=== PATIENT | female | born 2000 | race Caucasian/White ===

== ENCOUNTER 2018-10-09 20:01 | Inpatient (IN) | payer OTHER ==
[2018-10-09 20:43] LABS: Basophils % (A) 0 %; Eosinophils # (A) 0.2 k/uL (0-0.7); Eosinophils % (A) 2 %; HCT 44.4 % (34.0-46.0); Lymphocytes % (A) 19 %; MCH 31.5 pg (25.0-35.0); MCHC 35.9 g/dL (31.0-37.0); MCV 87.6 fL (80.0-100.0); Mean Platelet Volume 7.1; Monocytes # (A) 0.6 k/uL (0-1.0); Monocytes % (A) 6 %; Neutrophils # (A) 7.6 k/uL (1.3-7.7); Neutrophils % (A) 72 %; Platelet Count 287 k/uL (150-450); RBC 5.07 m/uL (3.80-5.40); RDW 11.9 % (11.5-15.5); WBC 10.5 k/uL (4.0-11.0)
[2018-10-09 20:53] LABS: ALT 47 U/L (9-52); AST 28 U/L (14-36); Alkaline Phosphatase 81 U/L (38-126); Anion Gap 10 mmol/L; Blood Urea Nitrogen 14 mg/dL (7-17); Calcium 10.8 mg/dL (8.4-10.2); Carbon Dioxide 24 mmol/L (22-30); Chloride 108 mmol/L (98-107); Glucose 88 mg/dL (74-99); Magnesium 2.2 mg/dL (1.6-2.3); Potassium 4.1 mmol/L (3.5-5.1); Sodium 142 mmol/L (137-145); Total Bilirubin 0.4 mg/dL (0.2-1.3); Total Protein 8.5 g/dL (6.3-8.2)
[2018-10-09 21:01] LABS: D-Dimer 0.23 mg/L FEU (<0.60); Partial Thromboplastin Time 24.5 sec (22.0-30.0); Prothrombin Time 10.2 sec (9.0-12.0)
[2018-10-09] MEDS ORDERED: EPINEPHrine 1 MG/ML 1 ML AMP IM STA (21:01)
[2018-10-09] MEDS ORDERED: FAMOTIDINE 20 MG/2 ML VIAL IV STA (21:01)
[2018-10-09] MEDS ORDERED: SODIUM CHLORIDE 0.9% 500 ML 500 ML IV STA (21:01)
[2018-10-09] MEDS ORDERED: methylPREDNISolone SOD SUCCI 125 MG/2 ML VIAL IV STA (21:01)
[2018-10-09 21:02] LABS: Creatine Kinase 43 U/L (30-135)
[2018-10-09] MEDS ORDERED: RACEPINEPHRINE 2.25% NEB 0.5 ML NEBU INHALATION STA (21:02)
[2018-10-09] MEDS: EPINEPHrine 1 MG/ML 1 ML AMP IM STA ×2 (21:03→21:08)
[2018-10-09 21:04] LABS: Appearance,Urine Clear (Clear); Bilirubin,Urine Negative (Negative); Blood,Urine Negative (Negative); Color,Urine Light Yellow; Glucose,Urine (UA) Negative (Negative); Ketones,Urine Negative (Negative); Leukocyte Esterase,Urine Negative (Negative); Nitrite,Urine Negative (Negative); PH, Urine 7.5 (5.0-8.0); Protein,Urine Negative (Negative); Urobilinogen,Urine <2.0 mg/dL (<2.0)
[2018-10-09] MEDS ORDERED: DEXAMETHASONE SOD PHOSPHATE 10 MG/ML 1 ML VIAL IV STA (21:04)
[2018-10-09] MEDS: diphenhydrAMINE 50 MG CAP PO STA ×2 (21:10→21:13)
[2018-10-09] MEDS ORDERED: diphenhydrAMINE 50 MG/ML 1 ML VIAL IVP STA (21:12)
--- NOTE | 2018-10-09 21:13 | XR ---
EXAMINATION TYPE: XR chest 1V DATE OF EXAM: 10/09/2018 COMPARISON: NONE HISTORY: Shortness of breath TECHNIQUE: Single frontal view of the chest is obtained. FINDINGS: Lower lungs are partially obscured by copious overlying soft tissues There is no focal air space opacity, pleural effusion, or pneumothorax seen. The cardiac silhouette size is within normal limits. The osseous structures are intact. Osseous fragment along the right humeral head is compati ble with calcific tendinitis. IMPRESSION: No acute cardiopulmonary process.
--- NOTE | 2018-10-09 21:14 | XR ---
EXAMINATION TYPE: XR soft tissue neck DATE OF EXAM: 10/09/2018 COMPARISON: NONE HISTORY: Shortness of breath TECHNIQUE: Lateral view only was performed of the neck soft tissues. FINDINGS: Cervical spine maintains normal alignment. There is straightening of the usual cervical jung dosis. No prevertebral soft tissue swelling is seen. Epiglottis is unremarkable. Nasopharynx, glottic airway and infraglottic airway are patent. IMPRESSION: Unremarkable lateral views of the soft tissues of the neck other than straightening of th e usual cervical lordosis that may be related to muscular sprain, spasm or patient positioning.
[2018-10-09 21:15] LABS: Creatine Kinase MB 1.2 ng/mL (0.0-2.4); Troponin I <0.012 ng/mL (0.000-0.034)
[2018-10-09] MEDS ORDERED: LORazepam 2 MG/ML INJ IV STA (22:04)
--- NOTE | 2018-10-09 22:33 | ED ---
General Adult HPI - General Chief complaint: Shortness of Breath Stated complaint: SUNDAY Time Seen by Provider: 10/09/18 20:09 Source: patient Mode of arrival: ambulatory Limitations: no limitations - History of Present Illness Initial comments: 17yo female with PMH of depression and anxiety presenting today for cc of difficulty breathing. History limited due to SUNDAY, pt was verbal at triage refused during history. However pt states that she has been experiencing symptoms for past 2 days. She states that she thought she had strep throat, but then had difficulty breathing the past 2 days. Pt denies fever, chills, night sweats, chest pain. Denies other associated symptoms. Upon arrival pt VS within normal limits, there is stridor present on exam. No noted obstruction, FB, erythema of the throat/tonsills or tonsillar enlargement. Pt moved to the trauma bay given epinephrine. No signs of altered mentition. Pt VS remain stable. Pt given Ativan for anxiety, revaluation revealed. Pt will be admitted to [facility] for observation Dr Fox accepted admission. - Related Data Home Medications Medication Instructions Recorded Confirmed hydrOXYzine PAMOATE [Vistaril] 25 mg PO TID PRN 10/09/18 10/09/18 Allergies Allergy/AdvReac Type Severity Reaction Status Date / Time No Known Allergies Allergy Verified 10/09/18 21:34 Review of Systems ROS Statement: Those systems with pertinent positive or pertinent negative responses have been documented in the HPI. ROS Other: All systems not noted in ROS Statement are negative. Constitutional: Denies: fever, chills ENT: Reports: throat pain Respiratory: Reports: dyspnea, stridor. Denies: cough, wheezes, hemoptysis Cardiovascular: Denies: chest pain Gastrointestinal: Reports: vomiting (vomiting from SUNDAY per pt). Denies: abdominal pain, nausea, diarrhea, constipation Musculoskeletal: Denies: back pain Skin: Denies: rash Past Medical History Past Medical History: No Reported History Additional Past Medical History / Comment(s): anxiety and depression History of Any Multi-Drug Resistant Organisms: None Reported Past Surgical History: No Surgical Hx Reported Past Psychological History: Anxiety, Depression Smoking Status: Current every day smoker Past Alcohol Use History: None Reported Past Drug Use History: None Reported General Exam - General Exam Comments Initial Comments: General: The patient is awake and alert, pt appears distressed, stridor audible. No facial swelling. Pt will not speak. Eye: +3 pupils are equal, round and reactive to light, extra-ocular movements are intact. No nystagmus. There is normal conjunctiva bilaterally. No signs of icterus. Ears, nose, mouth and throat: There are moist mucous membranes and no oral lesions. No swelling below tongue or angle of the mandible. Oropharynx was not erythematous, there is no tonsillar enlargement or lesions. Neck: The neck is supple, there is no tenderness or JVD. No anterior cervical lymph node the. Cardiovascular: There is a regular rate and rhythm. No murmur, rub or gallop is appreciated. Respiratory: Lungs are clear to auscultation, respirations are abored, breath sounds are equal. No wheezes, rales, or rhonchi. Audible stridor. No retractions. Mild abdominal breathing. No cyanosis. No diaphoresis. Gastrointestinal: Soft, non-distended, non-tender abdomen without masses or organomegaly noted. There is no rebound or guarding present. No CVA tenderness. Bowel sounds are unremarkable. Musculoskeletal: Normal ROM, no tenderness. Strength 5/5. Sensation intact. Radial and DP pulses equal bilaterally 2+. Neurological: A&O x 3. CN II-XII intact, There are no obvious motor or sensory deficits. Coordination appears grossly intact. Skin: Skin is warm and dry and no rashes or lesions are noted. Psychiatric: Pt appears anxious Limitations: no limitations Course Vital Signs 10/09/18 10/09/18 10/09/18 20:04 20:22 20:27 Temperature 98.8 F Pulse Rate 89 Respiratory 24 39 H 28 H Rate Blood Pressure 126/68 O2 Sat by Pulse 98 100 Oximetry 10/09/18 10/09/18 10/09/18 20:30 20:59 21:00 Temperature Pulse Rate 53 L 77 73 Respiratory 24 25 H 22 Rate Blood Pressure 128/82 129/75 O2 Sat by Pulse 100 100 Oximetry 10/09/18 10/09/18 10/09/18 21:07 21:08 21:15 Temperature Pulse Rate 105 H 100 123 H Respiratory 20 32 H 32 H Rate Blood Pressure 142/76 O2 Sat by Pulse 100 Oximetry 10/09/18 10/09/18 10/09/18 21:25 21:30 22:00 Temperature Pulse Rate 109 H 105 H 112 H Respiratory 23 17 18 Rate Blood Pressure 142/76 149/76 O2 Sat by Pulse 100 100 Oximetry 10/09/18 10/09/18 22:30 23:00 Temperature Pulse Rate 90 63 Respiratory 20 20 Rate Blood Pressure 140/74 134/79 O2 Sat by Pulse 100 100 Oximetry EKG Findings - EKG Comments: EKG Findings:: A 12-lead EKG was performed and shows the following: Rate is 56, and rhythm is normal sinus. There are normal QRS complexes and normal R-wave progression. ST segments have no elevation or depression, and TX segments appear normal. Sinus bradycardia Medical Decision Making - Medical Decision Making Pt moved to trauma bay after initial evaluation for stridor, suspected upper respiratory compromise. No obvious obstruction from inspection of oropharynx. Pt refuses to talk, Pt types responses on phone. No signs of altered mentition. EKG no acute findings. VS stable 100% O2 saturation. No cyanosis or pallor. No skin changes. DDX upper airway obstruction from infectious/allergic etiology. Pt given Decadron 10 mg IV, Benadryl 50 mg IV push, 1 mg epinephrine, Pepcid 20 mg IV, racepineprhine inhalation, solumedtrol 125mg IV and given 500ml bolus. Lower lung sounds are clear, upper respiratory stridor. Stridor varies in intensity. Dr. Harden, ENT, consulted emergently who performed an upper scope performed revealing no cause of stridor. Lateral films (-) for epiglotitis, no noted abnormalities of neck spacing. There are no clinical signs concerning on inspection of the oropharynx strep pharnygitis or peritonsillar abscess. Laboratory studies unremarkable, strep negative. Dr. Hammond managed pt care during time in trauma bay. at this time it is unclear the cause of pt stridor. Upon reevaluation, pt had significant improvement in stridor and was resting comfortably on boyfriends arm. Pt was transferred for further observation and management to [address] [place] [address]. - Lab Data Result diagrams: 10/09/18 20:22 10/09/18 20:22 Lab Results 10/09/18 10/09/18 10/09/18 Range/Units 20:22 20:22 20:22 WBC 10.5 (4.0-11.0) k/uL RBC 5.07 (3.80-5.40) m/uL Hgb 16.0 (11.4-16.0) gm/dL Hct 44.4 (34.0-46.0) % MCV 87.6 (80.0-100.0) fL MCH 31.5 (25.0-35.0) pg MCHC 35.9 (31.0-37.0) g/dL RDW 11.9 (11.5-15.5) % Plt Count 287 (150-450) k/uL Neutrophils % 72 % Lymphocytes % 19 % Monocytes % 6 % Eosinophils % 2 % Basophils % 0 % Neutrophils # 7.6 (1.3-7.7) k/uL Lymphocytes # 2.0 (1.0-4.8) k/uL Monocytes # 0.6 (0-1.0) k/uL Eosinophils # 0.2 (0-0.7) k/uL Basophils # 0.0 (0-0.2) k/uL PT (9.0-12.0) sec INR (<1.2) APTT (22.0-30.0) sec D-Dimer (<0.60) mg/L FEU Sodium 142 (137-145) mmol/L Potassium 4.1 (3.5-5.1) mmol/L Chloride 108 H (98-107) mmol/L Carbon Dioxide 24 (22-30) mmol/L Anion Gap 10 mmol/L BUN 14 (7-17) mg/dL Creatinine 0.82 (0.52-1.04) mg/dL Est GFR (CKD-EPI)AfAm >90 (>60 ml/min/1.73 sqM) Est GFR (CKD-EPI)NonAf >90 (>60 ml/min/1.73 sqM) Glucose 88 (74-99) mg/dL Calcium 10.8 H (8.4-10.2) mg/dL Magnesium 2.2 (1.6-2.3) mg/dL Total Bilirubin 0.4 (0.2-1.3) mg/dL AST 28 (14-36) U/L ALT 47 (9-52) U/L Alkaline Phosphatase 81 (38-126) U/L Total Creatine Kinase 43 (30-135) U/L CK-MB (CK-2) 1.2 (0.0-2.4) ng/mL CK-MB (CK-2) Rel Index 2.8 Troponin I <0.012 (0.000-0.034) ng/mL Total Protein 8.5 H (6.3-8.2) g/dL Albumin 5.0 (3.5-5.0) g/dL Urine Color Urine Appearance (Clear) Urine pH (5.0-8.0) Ur Specific [place] (1.001-1.035) Urine Protein (Negative) Urine Glucose (UA) (Negative) Urine Ketones (Negative) Urine Blood (Negative) Urine Nitrite (Negative) Urine Bilirubin (Negative) Urine Urobilinogen (<2.0) mg/dL Ur Leukocyte Esterase (Negative) Urine HCG, Qual (Not Detectd) Group A Strep Rapid (Negative) 10/09/18 10/09/18 10/09/18 Range/Units 20:22 20:22 20:22 WBC (4.0-11.0) k/uL RBC (3.80-5.40) m/uL Hgb (11.4-16.0) gm/dL Hct (34.0-46.0) % MCV (80.0-100.0) fL MCH (25.0-35.0) pg MCHC (31.0-37.0) g/dL RDW (11.5-15.5) % Plt Count (150-450) k/uL Neutrophils % % Lymphocytes % % Monocytes % % Eosinophils % % Basophils % % Neutrophils # (1.3-7.7) k/uL Lymphocytes # (1.0-4.8) k/uL Monocytes # (0-1.0) k/uL Eosinophils # (0-0.7) k/uL Basophils # (0-0.2) k/uL PT 10.2 (9.0-12.0) sec INR 1.0 (<1.2) APTT 24.5 (22.0-30.0) sec D-Dimer 0.23 (<0.60) mg/L FEU Sodium (137-145) mmol/L Potassium (3.5-5.1) mmol/L Chloride (98-107) mmol/L Carbon Dioxide (22-30) mmol/L Anion Gap mmol/L BUN (7-17) mg/dL Creatinine (0.52-1.04) mg/dL Est GFR (CKD-EPI)AfAm (>60 ml/min/1.73 sqM) Est GFR (CKD-EPI)NonAf (>60 ml/min/1.73 sqM) Glucose (74-99) mg/dL Calcium (8.4-10.2) mg/dL Magnesium (1.6-2.3) mg/dL Total Bilirubin (0.2-1.3) mg/dL AST (14-36) U/L ALT (9-52) U/L Alkaline Phosphatase (38-126) U/L Total Creatine Kinase (30-135) U/L CK-MB (CK-2) (0.0-2.4) ng/mL CK-MB (CK-2) Rel Index Troponin I (0.000-0.034) ng/mL Total Protein (6.3-8.2) g/dL Albumin (3.5-5.0) g/dL Urine Color Light Yellow Urine Appearance Clear (Clear) Urine pH 7.5 (5.0-8.0) Ur Specific [place] 1.010 (1.001-1.035) Urine Protein Negative (Negative) Urine Glucose (UA) Negative (Negative) Urine Ketones Negative (Negative) Urine Blood Negative (Negative) Urine Nitrite Negative (Negative) Urine Bilirubin Negative (Negative) Urine Urobilinogen <2.0 (<2.0) mg/dL Ur Leukocyte Esterase Negative (Negative) Urine HCG, Qual Not Detected (Not Detectd) Group A Strep Rapid (Negative) 10/09/18 Range/Units 21:15 WBC (4.0-11.0) k/uL RBC (3.80-5.40) m/uL Hgb (11.4-16.0) gm/dL Hct (34.0-46.0) % MCV (80.0-100.0) fL MCH (25.0-35.0) pg MCHC (31.0-37.0) g/dL RDW (11.5-15.5) % Plt Count (150-450) k/uL Neutrophils % % Lymphocytes % % Monocytes % % Eosinophils % % Basophils % % Neutrophils # (1.3-7.7) k/uL Lymphocytes # (1.0-4.8) k/uL Monocytes # (0-1.0) k/uL Eosinophils # (0-0.7) k/uL Basophils # (0-0.2) k/uL PT (9.0-12.0) sec INR (<1.2) APTT (22.0-30.0) sec D-Dimer (<0.60) mg/L FEU Sodium (137-145) mmol/L Potassium (3.5-5.1) mmol/L Chloride (98-107) mmol/L Carbon Dioxide (22-30) mmol/L Anion Gap mmol/L BUN (7-17) mg/dL Creatinine (0.52-1.04) mg/dL Est GFR (CKD-EPI)AfAm (>60 ml/min/1.73 sqM) Est GFR (CKD-EPI)NonAf (>60 ml/min/1.73 sqM) Glucose (74-99) mg/dL Calcium (8.4-10.2) mg/dL Magnesium (1.6-2.3) mg/dL Total Bilirubin (0.2-1.3) mg/dL AST (14-36) U/L ALT (9-52) U/L Alkaline Phosphatase (38-126) U/L Total Creatine Kinase (30-135) U/L CK-MB (CK-2) (0.0-2.4) ng/mL CK-MB (CK-2) Rel Index Troponin I (0.000-0.034) ng/mL Total Protein (6.3-8.2) g/dL Albumin (3.5-5.0) g/dL Urine Color Urine Appearance (Clear) Urine pH (5.0-8.0) Ur Specific [place] (1.001-1.035) Urine Protein (Negative) Urine Glucose (UA) (Negative) Urine Ketones (Negative) Urine Blood (Negative) Urine Nitrite (Negative) Urine Bilirubin (Negative) Urine Urobilinogen (<2.0) mg/dL Ur Leukocyte Esterase (Negative) Urine HCG, Qual (Not Detectd) Group A Strep Rapid Negative (Negative) Disposition Clinical Impression: Difficulty breathing Disposition: ADMITTED IP TO THIS HOSP Is patient prescribed a controlled substance at d/c from ED?: No Decision to Admit Reason: Admit from EC Decision Date: 10/09/18 Decision Time: 22:33 - Out of Hospital Transfer - Req. Specs Out of Hospital Transfer - Requested Specifics: Medical ICU
--- NOTE | 2018-10-10 00:39 | CONS ---
CONSULTATION DATE OF SERVICE: 10/09/2018. REASON FOR CONSULTATION: Stridor. HISTORY: This is a 17-year-old white female who has a 2-day history of sore throat and today developed respiratory difficulty with noisy breathing. She came into the ER for this. She has had no fever or chills. She does have a history of recurrent strep throat, but states that her throat is just minimally sore at this point. She has also had difficulty with talking with the noisy breathing. She has had no nasal congestion or fever or chills or body aches. She has not had symptoms like this in the past. The ER physician has evaluated her and noted some inspiratory stridor and therefore called for an urgent consultation for flexible laryngoscopy. She has received epinephrine and steroids already as well as breathing treatment as per protocol for allergic etiology. PAST MEDICAL HISTORY: Positive for strep throat, but otherwise negative. PAST SURGICAL HISTORY: Negative. ALLERGIES: No known drug allergies. MEDICATIONS: Vistaril. SOCIAL HISTORY: Does smoke. Does not drink alcohol. REVIEW OF SYSTEMS: Noncontributory other than as above. PHYSICAL EXAM: A well developed young adult white female. She does have fluctuating degree and variable inspiratory stridor. Sometimes this is quiet and non-existent, sometimes it is louder. She is tolerating her own secretions. She will have occasional nonproductive cough. HEENT: Head is normocephalic, atraumatic. Ears bilaterally canals clear. Tympanic membranes unremarkable and mobile. Nose shows no congestion or drainage. The mouth, throat and oropharynx show tonsils +2 without erythema or exudate. They are light pink in color. The there was excellent airway at this level. The hypopharynx and larynx with flexible laryngoscopy show paradoxical vocal cord movement. She has vocal cord adduction on inspiration and abduction on expiration. She is, however, tolerating this. NECK: Supple without adenopathy. Note that the larynx and hypopharynx show no erythema, no swelling. Epiglottis and supraglottic structures are normal with no erythema. ASSESSMENT: Paradoxical vocal cord movement. PLAN: The patient will be admitted for observation with close airway observation in the intensive care unit overnight. This may have been triggered by a viral etiology or reflux and therefore would be treated supportively. I have discussed this with and she will be placed on reflux medications as well as steroids. Also should have a speech therapy evaluation tomorrow. Pulmonology consult also is in order. At times will need specific laryngology consultation otherwise, if this does not improve. If there are questions or concerns, please feel free to contact me. MILAN / LENCHO: [phone] /
--- NOTE | 2018-10-10 00:45 | PCN ---
PROCEDURE NOTE PREOPERATIVE DIAGNOSIS: Inspiration stridor. POSTOPERATIVE DIAGNOSIS: Inspiration stridor with paradoxical vocal cord movement. PROCEDURE: Flexible laryngoscopy. ANESTHESIA: None. COMPLICATIONS: None. ESTIMATED BLOOD LOSS: None. FINDINGS: See consult note. DESCRIPTION OF PROCEDURE: The patient was in the hospital bed. Flexible laryngoscopy was performed through the left nasal cavity, with systematic evaluation of the left nasal cavity, nasopharynx, oropharynx, hypopharynx and larynx with the above findings noted. She had paradoxical vocal cord movement. I could show the ER physician also this, as well as her overall airway, which to the vocal cord level is patent. The laryngoscope was withdrawn. The patient tolerated this well with no complications. MMODL / IJN: [id number] /
[2018-10-10] MEDS ORDERED: ALPRAZolam 0.5 MG TAB PO PRN (00:54)
--- NOTE | 2018-10-10 01:19 | P.HPIM ---
History of Present Illness H&P Date: 10/09/18 Chief Complaint: SUNDAY and stridor 17 year old female with history of anxiety and depression . patient presented due to SUNDAY which started this afternoon. patient is non verbal , and having inspiratory upper airways noises which is suspicious for stridor. she is communicating through typing on her phone, she seems very comfortable, no drooling no use of accessory muscles. she sounds like someone having hiccups. per ED notes, she was verbal in triage , then stopped talking. Patient boyfriend at bedside. she denies any fevers, or chills. she reports no coughing. but does admit to sore throat and runny nose. denies any chest pain, or wheezing. denies any sick contacts. denies nausea or vomiting. in the ED, ENT evaluated the patient with flexible laryngoscopy and paradoxical vocal cord movement noted otherwise patent airways. Review of Systems pertinent positives and negatives as per HPI, all other systems reviewed and negative Past Medical History Past Medical History: No Reported History Additional Past Medical History / Comment(s): anxiety and depression History of Any Multi-Drug Resistant Organisms: None Reported Past Surgical History: No Surgical Hx Reported Past Psychological History: Anxiety, Depression Smoking Status: Current every day smoker Past Alcohol Use History: None Reported Past Drug Use History: None Reported Medications and Allergies Home Medications Medication Instructions Recorded Confirmed Type hydrOXYzine PAMOATE [Vistaril] 25 mg PO TID PRN 10/09/18 10/09/18 History Allergies Allergy/AdvReac Type Severity Reaction Status Date / Time No Known Allergies Allergy Verified 10/09/18 21:34 Physical Exam Vitals: Vital Signs Temp Pulse Resp BP Pulse Ox 10/09/18 23:00 63 20 134/79 100 10/09/18 22:30 90 20 140/74 100 10/09/18 22:00 112 H 18 149/76 100 10/09/18 21:30 105 H 17 142/76 100 10/09/18 21:25 109 H 23 10/09/18 21:15 123 H 32 H 10/09/18 21:08 100 32 H 10/09/18 21:07 105 H 20 142/76 100 10/09/18 21:00 73 22 129/75 100 10/09/18 20:59 77 25 H 10/09/18 20:30 53 L 24 128/82 100 10/09/18 20:27 28 H 10/09/18 20:22 39 H 100 10/09/18 20:04 98.8 F 89 24 126/68 98 Intake and Output 10/09/18 10/09/18 10/10/18 14:59 22:59 06:59 Other: Weight 76.657 kg Constitutional: No acute distress, following commands, communicates through typing on her phone, pleasant Eyes: Anicteric sclerae, moist conjunctiva, no lid-lag Pupils equal round reactive to light ENMT: NC/AT Oropharynx clear, no erythema, or exudates Neck: Supple, FROM, no masses, or JVD No carotid bruits No thyromegaly Lungs: Good air entry bilaterally, no wheezes, rhonci or rales. transmitted upper airway noises hiccup like noises with inspiration Clear to percussion Normal respiratory effort, no accessory muscle use Cardiovascular: Heart regular in rate and rhythm, No murmurs, gallops, or rubs No peripheral edema Abdominal: Soft Nontender, no guarding, rebound or rigidity Abdomen moving with respiration Normoactive bowel sounds No hepatomegaly, No splenomegaly No palpable mass No abdominal wall hernia noted Skin: Normal temperature, tone, texture, turgor No induration No subcutaneous nodules No rash, lesions No ulcers Extremities: No digital cyanosis No clubbing Pedal pulses intact and symmetrical Radial pulses intact and symmetrical No calf tenderness Psychiatric: Alert and oriented to person, place and time Appropriate affect fair judgment Neuro Muscles Strength 5/5 in all 4 extremities Sensation to light touch grossly present throughout Cranial nerves II-XII grossly intact No focal sensory deficits Lymphatics: no palpable cervical or supraclavicular , or inguinal lymph nodes Results CBC & Chem 7: 10/09/18 20:22 10/09/18 20:22 Labs: Abnormal Lab Results - Last 24 Hours (Table) 10/09/18 Range/Units 20:22 Chloride 108 H (98-107) mmol/L Calcium 10.8 H (8.4-10.2) mg/dL Total Protein 8.5 H (6.3-8.2) g/dL Assessment and Plan Assessment: 17 year old female with history of depression and anxiety, admitted as observation , for monitoring and psych evaluation. she presented due to sudden onset SUNDAY, and stridors,. denies any drooling or swallowing difficulties . in the ED , he vocal cords and throat evaluated with flexible laryngoscopy and paradoxical vocal cord movement noted Plan: hiccup like sounds with breathing, suspicious for stridor close monitoring supplemental oxygen as needed history of anxiety and depression her behavior suspicious for secondary gain psych evaluation DVT PPx heparin sc tid code status , full code patient father is surrogate decision maker observation for <48 hours discharge to home when stable 55 minutes spent in the care of this patient
[2018-10-10] MEDS ORDERED: ALBUTEROL NEBULIZED 2.5 MG/3 ML INHALATION STA (07:08)
[2018-10-10] MEDS: HEPARIN SODIUM,PORCINE 5,000 UNIT/ML 1 ML VIAL SQ SCH ×2 (08:54→18:12)
[2018-10-10] MEDS ORDERED: ALBUTEROL NEBULIZED 2.5 MG/3 ML INHALATION PRN (13:29)
--- NOTE | 2018-10-10 14:15 | P.CN ---
Psychiatric Consult - . Consult date: 10/10/18 Consult:: Depression and anxiety? Somatization reaction? 10/10/18 12:59 Assessment and Plan Assessment: HPI: 17yo female with PMH of depression and anxiety presenting today for cc of difficulty breathing. History limited due to SUNDAY, pt was verbal at triage refused during history. However pt states that she has been experiencing symptoms for past 2 days. She states that she thought she had strep throat, but then had difficulty breathing the past 2 days. Pt denies fever, chills, night sweats, chest pain. Denies other associated symptoms. Upon arrival pt VS within normal limits, there is stridor present on exam. No noted obstruction, FB, erythema of the throat/tonsills or tonsillar enlargement. Pt moved to the trauma bay given epinephrine. No signs of altered mentition. Pt VS remain stable. Pt given Ativan for anxiety, revaluation revealed. Pt will be admitted to [facility] for observation Home Medications Medication Instructions Recorded Confirmed hydrOXYzine PAMOATE [Vistaril] 25 mg PO TID PRN 10/09/18 10/09/18 Allergies Allergy/AdvReac Type Severity Reaction Status Date / Time No Known Allergies Allergy Verified 10/09/18 21:34 Past Medical History Past Medical History: No Reported History Additional Past Medical History / Comment(s): anxiety and depression History of Any Multi-Drug Resistant Organisms: None Reported Past Surgical History: No Surgical Hx Reported Past Psychological History: Anxiety, Depression Smoking Status: Current every day smoker Past Alcohol Use History: None Reported Past Drug Use History: None Reported Mental Status Examination - this 17-year-old female was seen in the hospital bed and we communicated with using her smart phone texting answers to my questions. She stated no one else was sick at home. She lives with her brother. She was at [facility] in [place] and was treated for depression and anxiety. There is no major psychiatric event that happened prior to her difficulty breathing. She is not psychotic delusional suicidal or homicidal. General Appearance: [ casual, bizarre, appears stated age Speech/Language: [Unable to speak at the present time due to laryngeal spasms not of psychiatric or psychiatric origin Attitude/Behavior: [cooperative Mood: [ anxious, fearful, hopelessness] Affect: [full range, Orientation: [time, person, place situation] Thought Content: [wnl Risk Factors: [She is not suicidal (ideations, plan), and/or Homicidal ( ideations, plan), other] Perception: [wnl, she denies hallucinations (auditory, visual, tactile), other] Thought Processes: [goal-oriented Concentration/Attention Span: [wnl] [Per observation and interview with the patient] Recent Memory: [wnl 3 out of 3 in 3 minutes] Remote Memory: [wnl] [past events, as related history] Intelligence: [ average] [based on history, based on vocabulary, syntax, grammar , and content] Judgement: [fair,] [per patient's behavior/history of present illness] Insight: [fair] [understanding severity of illness/history of present illness] Psychiatric impressions: Per her on history she has a history of depression and anxiety and was inpatient hospitalized over a one year ago at [facility] Psychiatric recommendations: I know further recommendations since this is no psychiatric emergency and not caused by a somatization disorder Thank you for the consult Cleveland aBrfield D.O. PhD (1) Anxiety and depression Current Visit: Yes Status: Resolved Priority: Low Code(s): F41.9 - ANXIETY DISORDER, UNSPECIFIED; F32.9 - MAJOR DEPRESSIVE DISORDER, SINGLE EPISODE , UNSPECIFIED SNOMED Code(s): 30509885 Time with Patient: Less than 30
--- NOTE | 2018-10-10 14:24 | P.PN ---
Subjective Progress Note Date: 10/10/18 Principal diagnosis: Stridor Patient was seen and examined. No acute events overnight. Patient continues to report stridor along with shortness of breath. Over the last couple of days she has experienced runny nose and sore throat. Patient states that she thought that she had strep throat as it typically presents this way but got worried after she lost her voice and started experiencing stridor. She is unable to speak as well at this time. She is taxing via her phone. Her vitals and O2 saturation has remained stable since admission. She denies any excessive exercise. She has no history of asthma or exercise-induced asthma. She does have a history of depression and anxiety, states her last panic attack was 2 months ago. She takes hydroxyzine as needed for anxiety? Patient states her depression is well controlled at this time. She recently moved in with her brother and he "couldnt be happier". She denies any symptoms of heartburn or GERD. She does endorse ALLERGIC rhinitis during the summertime. She denies any chest pain or palpitations. Objective - Vital Signs Vital signs: Vital Signs Temp 97.9 F 10/10/18 08:00 Pulse 84 10/10/18 08:14 Resp 17 10/10/18 08:00 BP 127/59 10/10/18 08:00 Pulse Ox 99 10/10/18 08:00 Intake & Output 10/09/18 10/10/18 10/10/18 18:59 06:59 18:59 Weight 76.657 kg 76.657 kg Other: Voiding Method Toilet Toilet # Voids 1 1 - Exam General: [non toxic], [no distress], [appears at stated age] Derm: [warm], [dry] Head: [atraumatic], [normocephalic], [symmetric] Eyes: [EOMI], [no lid lag], [anicteric sclera] Mouth: [no lip lesion], [mucus membranes moist] Cardiovascular: [S1S2 reg], [no murmur], [positive posterior tibial pulse bilateral], Lungs: [CTA bilateral without per airway stridor with expiration], [no rhonchi, no rales] , [no accessory muscle use] Abdominal: [soft], [ nontender to palpation], [no guarding], [no appreciable organomegaly] Ext: [no gross muscle atrophy], [no edema], [no contractures] Neuro: [no focal neuro deficits] Psych: [Alert], [oriented], [appropriate affect] - Labs CBC & Chem 7: 10/09/18 20:22 10/09/18 20:22 Labs: Abnormal Lab Results - Last 24 Hours (Table) 10/09/18 Range/Units 20:22 Chloride 108 H (98-107) mmol/L Calcium 10.8 H (8.4-10.2) mg/dL Total Protein 8.5 H (6.3-8.2) g/dL Microbiology - Last 24 Hours (Table) 10/09/18 21:15 Group A Strep Throat Culture - Preliminary Throat Assessment and Plan Assessment: Assessment and Plan 1. Stridor: Viral laryngitis vs vocal cord dysfunction? Laryngoscopy performed in the ED, paradoxical vocal cord movement noted. Neck and chest x-ray is unremarkable. She is afebrile with no leukocytosis pointing away from infectious cause. Strep test negative. She does have a history of anxiety in which focal cord dysfunction presents frequently. ENT consulted - recommends reflux medication, steroids, speech therapy evaluation and pulmonology consult. We'll start albuterol neb 4 times a day as needed for shortness of breath or wheezing and alprazolam 0.5 mg by mouth 3 times a day when necessary for anxiety. We will continue Solu-Medrol 40 g IV 3 times a day and Protonix 40 mg IV daily. Telemetry monitoring. O2 per nasal cannula to maintain an oxygen saturation greater than 92%. FU ENT, Pulmonology, Speech therapy consult. 2. Anxiety and Depression: On hydroxyzine at home. Alprazolam 0.5 mg by mouth 3 times a day as needed for anxiety. FU Psychiatry consult. 3. DVT/GI Prophlaxis: Heparin 5000 units subcutaneously 3 times a day. Protonix 40 mg IV daily. Patient continues to experience stridor and respiratory distress, though her vitals and oxygen saturation remained stable. We'll consult psychiatry, pulmonology and speech therapy for further recommendations.
--- NOTE | 2018-10-10 15:33 | P.CNPUL ---
History of Present Illness Consult date: 10/10/18 Reason for consult: dyspnea, cough Chief complaint: Stridor, difficulty breathing History of present illness: Pulmonary/critical care consult dated 10/10/2018 17-year-old female with a history of depression and anxiety who presents to the emergency department with difficulty breathing. The patient was mostly nonverbal because she was having difficulty speaking and in fact, she was communicating by Eating on her phone. She apparently was having difficulty breathing for about 2 days prior to admission. The patient apparently thought that she might have a throat infection and that was causing the problem. She denies any fever chills night sweats chest pain or other complaints for that matter. Stridor noted by the ER physician in the ER, and a soft tissue of the neck was negative. Chest x-ray was also normal. There are no signs of mental status changes or any skin lesions. The patient was admitted for stridor. The patient still has stridor despite being treated with albuterol and steroids. We are going to switch her to Decadron 6 mg every [address] her on some IV antibiotic. In addition, a mixture of helium and oxygen may be necessary should her airway become more compromised. There is no history of ALLERGY, and the patient is a current every day smoker. Review of Systems Other than shortness of breath, which the patient mostly communicated by using her phone, no other complaints are admitted to. She does have stridor when auscultating the neck area Past Medical History Past Medical History: No Reported History Additional Past Medical History / Comment(s): anxiety and depression History of Any Multi-Drug Resistant Organisms: None Reported Past Surgical History: No Surgical Hx Reported Past Anesthesia/Blood Transfusion Reactions: No Reported Reaction Past Psychological History: Anxiety, Depression Smoking Status: Current every day smoker Past Alcohol Use History: None Reported Past Drug Use History: None Reported Medications and Allergies Home Medications Medication Instructions Recorded Confirmed Type hydrOXYzine PAMOATE [Vistaril] 25 mg PO TID PRN 10/09/18 10/09/18 History Allergies Allergy/AdvReac Type Severity Reaction Status Date / Time No Known Allergies Allergy Verified 10/09/18 21:34 Physical Exam Osteopathic Statement: *. No significant issues noted on an osteopathic structural exam other than those noted in the History and Physical/Consult. Vitals: Vital Signs Temp Pulse Pulse Resp BP BP Pulse Ox 10/10/18 12:00 98.4 F 110 H 20 137/78 99 10/10/18 08:14 84 10/10/18 08:00 97.9 F 68 72 14 127/59 99 10/10/18 04:00 98.8 F 115 H 17 129/67 98 10/10/18 00:00 97.9 F 58 L 16 110/56 99 10/09/18 23:00 63 20 134/79 100 10/09/18 22:30 90 20 140/74 100 10/09/18 22:00 112 H 18 149/76 100 10/09/18 21:30 105 H 17 142/76 100 10/09/18 21:25 109 H 23 10/09/18 21:15 123 H 32 H 10/09/18 21:08 100 32 H 10/09/18 21:07 105 H 20 142/76 100 10/09/18 21:00 73 22 129/75 100 10/09/18 20:59 77 25 H 10/09/18 20:30 53 L 24 128/82 100 10/09/18 20:27 28 H 10/09/18 20:22 39 H 100 10/09/18 20:04 98.8 F 89 24 126/68 98 Intake and Output 10/10/18 10/10/18 10/10/18 06:59 14:59 22:59 Other: Voiding Method Toilet Toilet # Voids 1 1 Weight 76.657 kg No acute distress, oriented 3. Mild audible stridor is noted. HEENT examination is grossly unremarkable. Mucous membranes are moist. No oral lesions. Neck supple. Full range of motion. No adenopathy thyromegaly or neck vein distention. Stridor is noted when auscultating the neck area. Cardiovascular examination reveals regular rhythm rate. S1-S2 normal. No S3 or S4. No discernible murmur noted. Lungs reveal clear breath sounds.Breath sounds are equal bilaterally. No adventitious lung sounds including wheezes rhonchi or crackles. Abdomen soft and bowel sounds are heard. No masses or tenderness. Extremities are intact. No cyanosis clubbing or edema. Skin is without rash or lesion. Neurologic examination is brief but nonfocal. Results - Laboratory Findings CBC and BMP: 10/09/18 20:22 10/09/18 20:22 PT/INR, D-dimer PT 10.2 sec (9.0-12.0) 10/09/18 20:22 INR 1.0 (<1.2) 10/09/18 20:22 D-Dimer 0.23 mg/L FEU (<0.60) 10/09/18 20:22 Abnormal lab findings: Abnormal Labs 10/09/18 20:22 Chloride 108 H Calcium 10.8 H Total Protein 8.5 H - Diagnostic Findings Chest x-ray: report reviewed, image reviewed (Chest x-ray, labs and medications are all reviewed.) Assessment and Plan Assessment: Assessment Stridor, of unclear etiology. This may related to true pathology such as supraglottic /epiglottitis, or an ALLERGIC reaction, or could be psychologic/ psychiatric in nature. Rule out intermittent laryngeal dyskinesia History of anxiety History of depression Plan: Plan dated 10/10/2018 The patient is on albuterol updrafts and also we added some Vaponefrine updrafts to be used 3 times a day. In addition, we went ahead and discontinued the soluMedrol and placed her on Decadron, 6 mg every 6 hours. We also placed her on some IV azithromycin just in case this represented an episode of supraglottitis/epiglottitis, which might be bacterial in nature. In addition, we talked about having helium oxygen mixture ready just in case she develops worsening obstruction and difficulty. She has been seen by psychiatry. She had a direct laryngoscopy by ear nose and throat, which has showed paradoxical movement of the vocal cords. This whole episode may in fact related to intermittent laryngeal dyskinesia and not true pathology and all. Additional recommendations and suggestions are forthcoming. We will watch patient carefully. Time with Patient: Greater than 30
[2018-10-10] MEDS ORDERED: methylPREDNISolone SOD SUCCI 40 MG/ML 1 ML VIAL IV SCH (16:00)
[2018-10-10] MEDS ORDERED: AZITHROMYCIN 500 MG in SODIUM CHLORIDE 0.9% 250 ML IVPB SCH (16:00)
[2018-10-10] MEDS: RACEPINEPHRINE 2.25% NEB 0.5 ML NEBU INHALATION SCH ×2 (16:00→20:07)
[2018-10-10] MEDS: DEXAMETHASONE SOD PHOSPHATE 10 MG/ML 1 ML VIAL IV SCH (18:06)
[2018-10-10] MEDS: SODIUM CHLORIDE 0.9% 1,000 ML IV SCH ×2 (18:07→22:51)
--- NOTE | 2018-10-10 18:36 | PN ---
PROGRESS NOTE I consulted with her nurse today regarding her ongoing stridor. She is still having some respiratory stridor, although it fluctuates. She has been seen by Pulmonary and Psychiatric Medicine already. She has had no desaturations. She is afebrile with a normal white blood cell count. She is on ongoing medications such as steroids. She carries the diagnosis of paradoxical vocal cord movement disorder, which was noted on flexible laryngoscopy last evening. Would still recommend a speech therapy consultation, which has not been done yet. She does not have any signs or symptoms of epiglottitis or supraglottitis. Her nurse is going to monitor her closely, and if she has any worsening symptoms she is going to call. Would await speech therapy consultation. MMODL / IJN: [id number] /
[2018-10-11] MEDS: DEXAMETHASONE SOD PHOSPHATE 10 MG/ML 1 ML VIAL IV SCH ×2 (00:15→06:39)
[2018-10-11] MEDS: HEPARIN SODIUM,PORCINE 5,000 UNIT/ML 1 ML VIAL SQ SCH ×2 (00:22→09:49)
[2018-10-11] MEDS: NICOTINE 7MG/24HR PATCH TRANSDERM SCH ×2 (01:02→09:48)
[2018-10-11] MEDS: SODIUM CHLORIDE 0.9% 1,000 ML IV SCH ×2 (01:02→06:39)
[2018-10-11 04:23] VITALS: BMI 26.4
[2018-10-11] MEDS: RACEPINEPHRINE 2.25% NEB 0.5 ML NEBU INHALATION SCH (08:23)
[2018-10-11] MEDS ORDERED: PANTOPRAZOLE 40 MG/10 ML VIAL IVP SCH (09:00)
[2018-10-11 10:37] VITALS: BP 128/59; PULSE 74; RESP 18; TEMP 98.2
--- NOTE | 2018-10-11 10:49 | P.DS ---
Providers Date of admission: 10/09/18 22:33 Expected date of discharge: 10/11/18 Attending physician: Radha Fox MD Consults: 10/09/18 23:20 Consult Physician Stat Consulting Provider: Vern Bales Consult Reason/Comments: difficulty breathing Do you want consulting provider notified?: Already Contacted 10/10/18 07:35 Consult Physician Stat Consulting Provider: Cleveland Barfield Consult Reason/Comments: Non verbal, possible moood disorder Do you want consulting provider notified?: Yes 10/10/18 13:28 Consult Physician Stat Consulting Provider: Seth Guzman Consult Reason/Comments: Stridor Do you want consulting provider notified?: Yes Primary care physician: Stated None - Discharge Diagnosis(es) (1) Stridor Current Visit: Yes Status: Acute (2) Anxiety and depression Current Visit: Yes Status: Acute Hospital Course: 17 year old female with history of anxiety and depression presented for difficulty breathing and stridor, which started this afternoon. Patient is non verbal, and having inspiratory upper airways noises which is suspicious for stridor. She is communicating through typing on her phone. She seems very comfortable. She denies drooling and is not using accessory muscles. Per ED notes, she was verbal in triage, but then stopped talking. She denies any fevers, or chills. She reports no coughing, but does admit to sore throat and runny nose. She denies any chest pain, or wheezing. She denies any sick contacts. She denies nausea or vomiting. In the ED, ENT evaluated the patient with flexible laryngoscopy and paradoxical vocal cord movement noted otherwise patent airways. With regard to her stridor, this is thought to be likely secondary to viral laryngitis or focal cord dysfunction. Neck and chest x-ray were unremarkable. Patient was afebrile with no leukocytosis during her admission pointing away from an infectious cause. Strep test was negative. ENT was consulted and recommended reflux medication, steroids, pulmonology and speech therapy evaluation. She was started on albuterol neb treatments as needed for wheezing and Xanax by mouth as needed for anxiety. Patient was initially started on Solu -Medrol and Protonix IV. She was given oxygen per nasal cannula to maintain oxygen saturation greater than 92%. Pulmonology was consulted and recommended switching Solu-Medrol to Decadron. She was also given racemic epinephrine as needed for stridor. Speech therapy was consulted and was able to get the patient speaking within 15 minutes of working with her. Speech therapy did notice pickups and stuttering, recommended outpatient follow-up. Patient's oxygen saturation and vitals remained stable throughout her admission and at the time of discharge. Patient seen and examined prior to discharge. No acute events overnight. Patient denies stridor or shortness of breath. Patient states she is able to speak now but complains of stuttering. She denies any chest pain or palpitations. Looking for to going home. General: [non toxic], [no distress], [appears at stated age] Derm: [warm], [dry] Head: [atraumatic], [normocephalic], [symmetric] Eyes: [EOMI], [no lid lag], [anicteric sclera] Mouth: [no lip lesion], [mucus membranes moist] Cardiovascular: [S1S2 reg], [no murmur], [positive DP pulse bilateral], Lungs: [CTA bilateral without stridor], [no rhonchi, no rales] , [no accessory muscle use] Abdominal: [soft], [ nontender to palpation], [no guarding], [no appreciable organomegaly] Ext: [no gross muscle atrophy], [no edema], [no contractures] Neuro: [no focal neuro deficits] Psych: [Alert], [oriented], [appropriate affect] Assessment and Plan 1. Stridor: Viral laryngitis vs vocal cord dysfunction? Laryngoscopy performed in the ED, paradoxical vocal cord movement noted. Neck and chest x-ray is unremarkable. She is afebrile with no leukocytosis pointing away from infectious cause. Strep test negative. She does have a history of anxiety in which focal cord dysfunction presents frequently. ENT consulted - recommends reflux medication, steroids, speech therapy evaluation and pulmonology consult. Continue Albuterol neb 4 times a day as needed for shortness of breath or wheezing and alprazolam 0.5 mg by mouth 3 times a day when necessary for anxiety. SoluMedrol DC'd as per Pulmonology and Decadron 6mg IV Q6H started along with racemic epinephrine and Azithromycin 250 mg IV QD. Continue Protonix 40 mg IV daily. Telemetry monitoring. O2 per nasal cannula to maintain an oxygen saturation greater than 92%. 2. Anxiety and Depression: On hydroxyzine at home. Alprazolam 0.5 mg by mouth 3 times a day as needed for anxiety. Psychiatry reports that this is not a somatic issue. 3. DVT/GI Prophlaxis: Heparin 5000 units subcutaneously 3 times a day. Protonix 40 mg IV daily. Patient stridor has completely resolved since working with speech therapy. Her vitals and O2 saturation remained stable. This is likely psychogenic or vocal cord dysfunction. Patient advised follow-up with PCP within 1-2 days and follow -up with speech therapy. Likely discharge today. Pertinent Studies: Chest and neck x-ray Patient Condition at Discharge: Stable Plan - Discharge Summary Discharge Rx Participant: No New Discharge Prescriptions: Continue hydrOXYzine PAMOATE [Vistaril] 25 mg PO TID PRN PRN Reason: Anxiety Discharge Medication List hydrOXYzine PAMOATE [Vistaril] 25 mg PO TID PRN 10/09/18 [History] Follow up Appointment(s)/Referral(s): None,Stated [Primary Care Provider] - 1-2 days Activity/Diet/Wound Care/Special Instructions: Diet: Regular Please follow-up with your primary care provider within 1-2 days of discharge. Please follow-up with speech therapy with the appointment given to you. Discharge Disposition: HOME SELF-CARE
[2018-10-12] MEDS ORDERED: PANTOPRAZOLE 40 MG TABLET PO SCH (09:00)
== END 2018-10-11 11:30 | disposition home or self-care (01) | DRG 153 ==
LOC: EC 20:01 → 2SICU 22:33 → 3SCARD 23:06
PROVIDERS: ADMIT Internal Medicine; ATTEND Internal Medicine
PROC: 0CJS8ZZ Inspection of Larynx, Via Natural or Artificial Opening Endoscopic (ICD-10-PCS; principal; 2018-10-09)
DX: J11.1 Influenza due to unidentified influenza virus with other respiratory manifestations (principal); G25.9 Extrapyramidal and movement disorder, unspecified; F17.200 Nicotine dependence, unspecified, uncomplicated; F32.9 Major depressive disorder, single episode, unspecified; F41.0 Panic disorder [episodic paroxysmal anxiety]; J30.9 Allergic rhinitis, unspecified; J38.3 Other diseases of vocal cords
CPT/HCPCS: 31575; 36415; 70360; 71045; 80053; 81003; 81025; 82550; 82553; 83735; 84484; 85025; 85379; 85610; 85730; 87081; 87430; 93005; 94640; 96361; 96372; 96374; 96375; 99285

== ENCOUNTER 2019-11-11 00:28 | Emergency (ER) | payer OTHER ==
--- NOTE | 2019-11-11 01:33 | CT ---
EXAMINATION TYPE: CT brain saray wo con DATE OF EXAM: 11/11/2019 COMPARISON: None HISTORY: fall, concussion CT DLP: 1272.5 mGycm Automated exposure control for dose reduction was used. Multiple axial sections were obtained from the skull base to T1 vertebra without contrast. Multiple a xial sections were obtained of the brain without contrast. FINDINGS: Ventricles and sulci appear normal. There is no mass effect nor midline shift. There is no sign of in tracranial hemorrhage. The calvarium is intact. Cervical vertebra have normal spacing and alignment. Posterior elements are intact. Skull base is int act. There is no evidence of a fracture. IMPRESSION: Normal head CT scan. Normal cervical spine CT scan.
--- NOTE | 2019-11-11 01:57 | XR ---
EXAMINATION TYPE: XR chest 2V DATE OF EXAM: 11/11/2019 COMPARISON: 10/09/2018 HISTORY: Short of breath TECHNIQUE: 2 views FINDINGS: Heart and mediastinum are normal. Lungs are clear. Diaphragm is normal. Bony thorax appears normal. IMPRESSION: Normal chest. No change.
--- NOTE | 2019-11-11 01:58 | XR ---
EXAMINATION TYPE: XR thoracic spine 2V DATE OF EXAM: 11/11/2019 COMPARISON: NONE HISTORY: Back pain TECHNIQUE: 3 views FINDINGS: Thoracic vertebra have normal spacing and alignment. There is no evidence of compression fr acture. There is no paraspinal mass. Posterior elements appear intact. IMPRESSION: Normal thoracic spine.
--- NOTE | 2019-11-11 01:59 | XR ---
EXAMINATION TYPE: XR lumbar spine 2 or 3V DATE OF EXAM: 11/11/2019 COMPARISON: NONE HISTORY: Fall. Back pain TECHNIQUE: 3 views FINDINGS: Lumbar vertebra have normal spacing and alignment. Posterior elements are intact. Sacroilia c joints appear normal. IMPRESSION: Normal lumbar spine exam.
[2019-11-11 02:31] VITALS: BP 118/61; PULSE 66; RESP 16; TEMP 98.4
[2019-11-11] MEDS ORDERED: ONDANSETRON ODT 4 MG TAB PO STA (02:32)
--- NOTE | 2019-11-11 02:36 | ED ---
General Adult HPI - General Chief complaint: Head Injury Stated complaint: concussion Time Seen by Provider: 11/11/19 00:49 Source: patient, RN notes reviewed, old records reviewed Mode of arrival: ambulatory Limitations: no limitations - History of Present Illness Initial comments: 18-year-old female patient presents to ED for evaluation of possible concussion. Patient reports that she had 2 traumas to her head today. She reports that a car trunk door Down on the apex of her head at approximately 6 PM. At approximately 8 PM she was walking down stairs when she hit her head on the ceiling in the forehead region. Patient reported that she may have fallen down the stairs. She reports that the next thing she remembers she was at the bottom of the stairs standing. She did have others around her did not hear any loud no eyes or any sounds consistent with a fall down stairs. However does report that her had her neck and her thoracic and lumbar spine were sore. Patient since has been having mild waxing and waning headache along with photophobia and nausea. Denies a chance of being . Denies any paresthesias. Denies any red flag symptoms for cauda equina. Denies any other complaints at this time. Denies abdominal pain. Denies any chance of being . Systemic: Pt denies fatigue, fever/chills, rash. Pt denies weakness, night sweats, weight loss. Neuro: Pt denies visual disturbances, syncope or pre-syncope. HEENT: Pt denies ocular discharge or irritation, otalgia, rhinorrhea, pharyngitis or notable lymphadenopathy. Cardiopulmonary: Pt denies chest pain, SOB, heart palpitations, dyspnea on exertion. Abdominal/GI: Pt denies abdominal pain, n/v/d. : Pt denies dysuria, burning w/ urination, frequency/urgency. Denies new onset urinary or bowel incontinence. MSK: Pt denies myalgia, loss of strength or function in extremities. Neuro: Pt denies new onset weakness, paresthesias. - Related Data Previous Rx's Medication Instructions Recorded hydrOXYzine PAMOATE [Vistaril] 25 mg PO TID PRN #90 cap 10/11/18 Allergies Allergy/AdvReac Type Severity Reaction Status Date / Time blueberry Allergy Anaphylaxis Verified 11/11/19 00:44 latex Allergy Rash/Hives Verified 11/11/19 00:44 strawberry Allergy Anaphylaxis Verified 11/11/19 00:44 Review of Systems ROS Statement: Those systems with pertinent positive or pertinent negative responses have been documented in the HPI. ROS Other: All systems not noted in ROS Statement are negative. Past Medical History Past Medical History: No Reported History Additional Past Medical History / Comment(s): anxiety and depression History of Any Multi-Drug Resistant Organisms: None Reported Past Surgical History: No Surgical Hx Reported Past Anesthesia/Blood Transfusion Reactions: No Reported Reaction Past Psychological History: Anxiety, Depression Smoking Status: Current every day smoker General Exam - General Exam Comments Initial Comments: Constitutional: NAD, AOX3, Pt has pleasant affect. HEENT: NC/AT, trachea midline, neck supple, no lymphadenopathy. Posterior pharynx non erythematous, without exudates. External ears appear normal, without discharge. Mucous membranes moist. Eyes PERRLA, EOM intact. There is no scleral icterus. No pallor noted. Cardiopulmonary: RRR, no murmurs, rubs or gallops, no JVD noted. Lungs CTAB in anterior and posterior callahan. No peripheral edema. Abdominal exam: Abdomen soft and non-distended. Abdomen non-tender to palpation in all 4 quadrants. Bowel sounds active in LLQ. No hepatosplenomegaly. No ecchymosis Neuro: CN II-XII intact. No nuchal rigidity. No raccon eyes, no richter sign, no hemotympanum. Mild amount of cervical, thoracic, right paralumbar spinal tenderness. No skin changes. MSK: 5 out of 5 strength psoas quadriceps. Heel to toe walking intact. No posterior calf tenderness bilaterally, homans sign negative bilaterally. Posterior tibialis and radial pulse +2 bilaterally. Sensation intact in upper and lower extremities. Full active ROM in upper and lower extremities, 5/5 stregnth. Limitations: no limitations Course Vital Signs 11/11/19 11/11/19 00:39 02:31 Temperature 97.9 F 98.4 F Pulse Rate 63 66 Respiratory 18 16 Rate Blood Pressure 125/79 118/61 O2 Sat by Pulse 99 99 Oximetry Medical Decision Making - Medical Decision Making 18-year-old female patient presents for evaluation of possible concussion and reported possible fall downstairs. Patient will sent stable, afebrile. Physical exam displayed intact neurologic exam. Did display midline cervical spinal, thoracic right paralumbar tenderness. Imaging CT althea so, cxr, thoracic and lumbar spine are negative. Patient did improve after Zofran. Patient's symptoms are consistent with concussion. Patient was discharged to follow up with primary care provider and return to ER if condition worsens. Denies tach's worsened to clearance her primary care provider. case discussed with Dr. Ortiz. Disposition Clinical Impression: Concussion Disposition: HOME SELF-CARE Condition: Stable Instructions (If sedation given, give patient instructions): Concussion (ED) Additional Instructions: Follow up with primary care provider tomorrow. No contact sports until clearance. Return to ER if condition worsens in any way. Is patient prescribed a controlled substance at d/c from ED?: No Referrals: None,Stated [Primary Care Provider] - 1-2 days [facility] [NON[facility]FF] - 1-2 days
[2019-11-11] MEDS ORDERED: ACETAMINOPHEN TAB 325 MG TAB PO STA (02:39)
[2019-11-11] MEDS ORDERED: ONDANSETRON 4 MG ODT STARTER PACK 2 TAB BTL PO STA (03:19)
== END 2019-11-11 03:23 | disposition home or self-care (01) ==
LOC: EC 00:28
DX: S06.0X9A Concussion with loss of consciousness of unspecified duration, initial encounter (principal); F17.200 Nicotine dependence, unspecified, uncomplicated; Z91.040 Latex allergy status; Z91.018 Allergy to other foods; W22.8XXA Striking against or struck by other objects, initial encounter; Y92.009 Unspecified place in unspecified non-institutional (private) residence as the place of occurrence of the external cause
CPT/HCPCS: 72070; 72100; 71046; 72125; 70450; 99284; S0119